=== PATIENT | male | born 1975 ===

== ENCOUNTER 2019-09-02 07:46 | Emergency (ER) | payer OTHER ==
[2019-09-02 08:15] VITALS: BP 127/78
[2019-09-02] MEDS ORDERED: IBUPROFEN 800 MG TAB PO ONE (09:34)
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
== END 2019-09-02 10:41 ==
LOC: ED 07:46
DX: S16.1XXA Strain of muscle, fascia and tendon at neck level, initial encounter (principal); S20.211A Contusion of right front wall of thorax, initial encounter; V89.2XXA Person injured in unspecified motor-vehicle accident, traffic, initial encounter; Y93.89 Activity, other specified; Y92.410 Unspecified street and highway as the place of occurrence of the external cause; Y99.8 Other external cause status
CPT/HCPCS: 71111; 72040